=== PATIENT | female | born 1980 | race Caucasian/White ===

== ENCOUNTER 2019-03-27 06:43 | Outpatient (CLI) | payer BC ==
--- NOTE | 2019-03-27 07:36 | ULT ---
EXAM: Abdominal ultrasound complete: HISTORY: Reflux, epigastric pain COMPARISON: None FINDINGS: The liver appears unremarkable. Intraluminal filling defects within the gallbladder evidence for gallbladder wall polyps with a possi ble gallstone in the neck of the gallbladder. The common bile duct is Within normal limits. Visualized pancreas: Unremarkable. Visualized abdominal aorta: Unremarkable. Visualized IVC: Unremarkable. Visualized spleen: Unremarkable. Visualized kidneys: No evidence for hydronephrosis or solid or cystic mass. No mass, abscess, adenopathy, or abnormal fluid collection or other acute process. IMPRESSION: Multiple filling defects within the gallbladder evidence for gallbladder wall polyps with a possible gallstone in the neck of the gallbladder.
== END 2019-03-27 06:44 | disposition home or self-care (01) ==
LOC: BICULT 06:43
PROVIDERS: ATTEND Internal Medicine Gastroenterology
DX: K21.9 Gastro-esophageal reflux disease without esophagitis (principal); R10.13 Epigastric pain; R11.2 Nausea with vomiting, unspecified; R19.7 Diarrhea, unspecified; K82.4 Cholesterolosis of gallbladder
CPT/HCPCS: 76700

== ENCOUNTER 2019-04-01 10:57 | Outpatient (CLI) | payer BC ==
[2019-04-01 12:38] LABS: #Basophils 0.2 thou/uL (0.0-0.2); #Eosinphils 0.1 thou/uL (0.0-0.7); #Lymphocytes 2.6 thou/uL (1.20-3.40); #Monocytes 0.5 thou/uL (0.11-0.59); #Neutrophils 7.2 thou/uL (1.40-6.50); %Basophils 1.5 % (0.0-1.0); %Eosinophils 0.9 % (0.0-10.0); %Lymphocytes 24.7 % (21.0-51.0); %Monocytes 5.1 % (0.0-10.0); %Neutrophils 67.8 % (42.0-75.0); Hemoglobin 13.5 g/dL (12.0-16.0); Mean Corpuscular HGB CONC 32.7 g/dL (32.0-36.0); Mean Corpuscular Hemoglobin 30.5 pg (27.0-31.0); Mean Corpuscular Volume 93.2 fL (78.0-98.0); Mean Platelet Volume 8.7 fL (7.4-10.4); Platelet Count 455 thou/uL (130-400); RBC Distribution Width 12.4 % (11.5-14.5); Red Blood Cell (RBC) Count 4.44 mill/uL (4.20-5.40); White Blood Cell (WBC) Count 10.6 thou/uL (4.8-10.8)
[2019-04-01 13:03] LABS: ALT (SGPT) 27 U/L (8-55); AST (SGOT) 25 U/L (5-34); Albumin 4.5 g/dL (3.5-5.0); Alkaline Phosphatase 62 U/L (40-150); Anion Gap 14 mmol/L (10-20); BUN (Urea Nitrogen) 10 mg/dL (7.0-18.7); Bilirubin, Direct 0.2 mg/dL (0.1-0.3); Bilirubin, Total 0.7 mg/dL (0.2-1.2); Calc. Creatinine Clearance 0 mL/min (70-130); Calcium 9.5 mg/dL (7.8-10.44); Carbon Dioxide 22 mmol/L (22-29); Chloride 108 mmol/L (98-107); Estimated GFR-MDRD 86; Globulin 3.5 g/dL (2.4-3.5); Glucose 91 mg/dL (70-105); Potassium 4.6 mmol/L (3.5-5.1); Sodium 139 mmol/L (136-145)
== END 2019-04-01 10:58 | disposition home or self-care (01) ==
LOC: LABBT 10:57
PROVIDERS: ATTEND Surgery
DX: Z01.818 Encounter for other preprocedural examination (principal); K80.20 Calculus of gallbladder without cholecystitis without obstruction
CPT/HCPCS: 80053; 80076; 85025; 93005; 93010

== ENCOUNTER 2019-04-02 06:01 | Day surgery (SDC) | payer BC ==
[2019-04-01 11:33] VITALS: BMI 34.2
[2019-04-02] MEDS ORDERED: Sodium Chloride 0.9% 100 ML ONE (06:09)
[2019-04-02] MEDS ORDERED: cefOXitin 2 GM VIAL ONE (06:09)
[2019-04-02] MEDS ORDERED: Fentanyl 100 MCG/2 ML VIAL ONE ×2 (06:22→08:55)
[2019-04-02] MEDS ORDERED: Bupivacaine/Epinephrine 0.25% 30 ML VIAL ONE (06:36)
[2019-04-02] MEDS ORDERED: Midazolam HCl 2 mg/2 ml Vial ONE (07:20)
[2019-04-02] MEDS ORDERED: Promethazine HCl 25 MG/ML VIAL ONE (09:55)
[2019-04-02] MEDS ORDERED: Morphine 2 MG/ML SYRINGE ONE (10:03)
[2019-04-02] MEDS ORDERED: HYDROcodone/Acetaminophen 5/325 mg Tablet ONE (10:52)
[2019-04-02] MEDS ORDERED: PROPOFOL 200 MG/20 ML VIAL ONE (13:42)
[2019-04-02] MEDS ORDERED: Ondansetron PF 4 MG/2 ML Vial ONE (13:42)
[2019-04-02] MEDS ORDERED: Dexamethasone 20 MG/5 ML VIAL ONE (13:42)
[2019-04-02] MEDS ORDERED: Succinylcholine Chloride 20 MG/ML 10 ml SYRINGE FS ONE (13:42)
[2019-04-02] MEDS ORDERED: Rocuronium Bromide 10 MG/ML (10ML VIAL) ONE (13:42)
[2019-04-02] MEDS ORDERED: Lidocaine 1% PF 5 ML VIAL ONE (13:42)
[2019-04-02] MEDS ORDERED: Glycopyrrolate 0.2 MG/ML 5 ML SYRINGE ONE (13:42)
--- NOTE | 2019-04-02 14:20 | OP ---
DATE OF PROCEDURE: 04/02/2019 PREOPERATIVE DIAGNOSIS: Symptomatic cholelithiasis. PROCEDURE PERFORMED: Laparoscopic cholecystectomy. INDICATIONS: A 38-year-old female, who has been having episodic right upper quadrant pain. Ultrasound showed polyps and a gallstone. FINDINGS: She had extensive adhesions to the gallbladder, suggesting previous inflammation. The cystic duct was very small caliber without dilatation. DESCRIPTION OF PROCEDURE: After informed consent was obtained, the patient was taken to the operating room, given general endotracheal anesthesia, placed in supine position. Abdomen was prepped and draped in usual fashion. Local anesthesia infiltrated subcutaneously and deep. Subumbilical incision was performed. Subcu divided sharply. The fascia grasped and 2 stay sutures of 0 Vicryl placed in each side of midline. Midline incised. Digital palpation revealed no local adhesions. A blunt 12 mm trocar inserted. Pneumoperitoneum was created to a pressure of 15 mmHg. A 0-degree laparoscope was inserted under direct vision. Three 5 mm ports were placed subcostally. The gallbladder was grasped and advanced superiorly. The peritoneum lysed distally to expose the cystic duct and artery in critical view. The artery and duct were triply ligated with hemoclips and divided. The gallbladder removed from its fossa utilizing electrocautery, removed from the abdomen through the umbilical port. Hemostasis assured. Trocars and retractors removed. The fascia closed with interrupted 2-0 Vicryl suture. The skin closed with interrupted 4-0 Rapide. Dermabond applied. The patient tolerated the procedure well, transferred to Recovery in good condition. Sponge and needle count verified correct x2. Job ID: [id number]
== END 2019-04-02 11:29 | disposition home or self-care (01) ==
LOC: SDC 06:01
PROVIDERS: ATTEND Surgery
PROC: 0FT44ZZ Resection of Gallbladder, Percutaneous Endoscopic Approach (ICD-10-PCS; principal; 2019-04-02)
DX: K80.10 Calculus of gallbladder with chronic cholecystitis without obstruction (principal); I10 Essential (primary) hypertension; D64.9 Anemia, unspecified; M19.90 Unspecified osteoarthritis, unspecified site; E78.00 Pure hypercholesterolemia, unspecified; Z79.899 Other long term (current) drug therapy
CPT/HCPCS: 88304; J0694; J1100; J2001; J2250; J2270; J2405; J2550; J2704; J3010; J3490

== ENCOUNTER → 2019-05-20 | Day surgery (SDC) | payer BC | LOC: ENDO/OP 07:49 | PROVIDERS: ATTEND Internal Medicine Gastroenterology | DX: K21.9 Gastro-esophageal reflux disease without esophagitis (principal) | CPT/HCPCS: 91010; 91034 ==

== ENCOUNTER 2019-06-04 15:48 | Outpatient (CLI) | payer BC ==
[2019-06-04 17:26] LABS: #Basophils 0.1 thou/uL (0.0-0.2); #Eosinphils 0.2 thou/uL (0.0-0.7); #Lymphocytes 3.4 thou/uL (1.20-3.40); #Monocytes 0.7 thou/uL (0.11-0.59); #Neutrophils 6.2 thou/uL (1.40-6.50); %Basophils 1.1 % (0.0-1.0); %Eosinophils 1.9 % (0.0-10.0); %Lymphocytes 31.7 % (21.0-51.0); %Monocytes 6.4 % (0.0-10.0); %Neutrophils 58.9 % (42.0-75.0); Hemoglobin 13.5 g/dL (12.0-16.0); Mean Corpuscular HGB CONC 33.4 g/dL (32.0-36.0); Mean Corpuscular Hemoglobin 30.3 pg (27.0-31.0); Mean Corpuscular Volume 90.6 fL (78.0-98.0); Mean Platelet Volume 9.1 fL (7.4-10.4); Platelet Count 401 thou/uL (130-400); RBC Distribution Width 12.2 % (11.5-14.5); Red Blood Cell (RBC) Count 4.47 mill/uL (4.20-5.40); White Blood Cell (WBC) Count 10.5 thou/uL (4.8-10.8)
== END 2019-06-04 15:49 | disposition home or self-care (01) ==
LOC: LABBT 15:48
PROVIDERS: ATTEND Surgery
DX: Z01.818 Encounter for other preprocedural examination (principal); K44.9 Diaphragmatic hernia without obstruction or gangrene; K21.9 Gastro-esophageal reflux disease without esophagitis
CPT/HCPCS: 85025; 93005; 93010

== ENCOUNTER 2019-10-10 08:40 | Outpatient (CLI) | payer BC ==
--- NOTE | 2019-10-15 14:26 | MMO ---
Bilateral MAMMO Bilat Screen [facility]. CLINICAL HISTORY: Patient is 38 years old and is seen for screening. The patient has the following family history of breast cancer: paternal aunt, at age 36, malignant (generic), SECOND OCCURANCE 2018, LEUKEMIA AND MELANOMA and paternal grandmother, at age 50, malignant (generic), PANCREATIC. The patient has no personal history of cancer. VIEWS: The views performed were: bilateral craniocaudal with tomosynthesis; bilateral mediolateral oblique with tomosynthesis; and left craniocaudal. FILMS COMPARED: The present examination has been compared to a prior imaging study performed at [facility] on 11/11/2014. This study has been interpreted with the assistance of computer-aided detection. MAMMOGRAM FINDINGS: There are scattered fibroglandular densities. There are no suspicious masses, suspicious calcifications, or new areas of architectural distortion. IMPRESSION: THERE IS NO MAMMOGRAPHIC EVIDENCE OF MALIGNANCY. A ROUTINE FOLLOW-UP MAMMOGRAM IN 1 YEAR IS RECOMMENDED. THE RESULTS OF THIS EXAM WERE SENT TO THE PATIENT. ACR BI-RADS Category 1 - Negative MAMMOGRAPHY NOTE: 1. A negative mammogram report should not delay a biopsy if a dominant of clinically suspicious mass is present. 2. Approximately 10% to 15% of breast cancers are not detected by mammography. 3. Adenosis and dense breasts may obscure an underlying neoplasm. Reported by: MARYBETH DAO MD Electonically Signed: [id number]
== END 2019-10-10 08:41 | disposition home or self-care (01) ==
LOC: BICMAMMO 08:40
PROVIDERS: ATTEND Obstetrics & Gynecology
DX: Z12.31 Encounter for screening mammogram for malignant neoplasm of breast (principal); Z80.3 Family history of malignant neoplasm of breast
CPT/HCPCS: 77063; 77067

== ENCOUNTER 2020-08-27 06:34 | Outpatient (CLI) | payer BC, OTHER ==
[2020-08-27 14:03] LABS: #Basophils 0.1 thou/uL (0.0-0.2); #Eosinphils 0.1 thou/uL (0.0-0.7); #Lymphocytes 2.8 thou/uL (1.20-3.40); #Monocytes 0.5 thou/uL (0.11-0.59); #Neutrophils 3.8 thou/uL (1.40-6.50); %Basophils 1.4 % (0.0-1.0); %Eosinophils 1.1 % (0.0-10.0); %Lymphocytes 38.4 % (21.0-51.0); %Monocytes 7.1 % (0.0-10.0); %Neutrophils 52.1 % (42.0-75.0); Hemoglobin 13.7 g/dL (12.0-16.0); Mean Corpuscular HGB CONC 32.3 g/dL (32.0-36.0); Mean Corpuscular Hemoglobin 30.7 pg (27.0-31.0); Mean Platelet Volume 8.9 fL (7.4-10.4); Platelet Count 454 thou/uL (130-400); RBC Distribution Width 11.7 % (11.5-14.5); Red Blood Cell (RBC) Count 4.46 mill/uL (4.20-5.40); White Blood Cell (WBC) Count 7.2 thou/uL (4.8-10.8)
[2020-08-27 14:42] LABS: ALT (SGPT) 15 U/L (8-55); AST (SGOT) 17 U/L (5-34); Albumin 4.2 g/dL (3.5-5.0); Alkaline Phosphatase 65 U/L (40-110); Anion Gap 10 mmol/L (10-20); BUN (Urea Nitrogen) 6 mg/dL (7.0-18.7); Bilirubin, Total 0.4 mg/dL (0.2-1.2); Calc. Creatinine Clearance 0 mL/min (70-130); Calcium 8.5 mg/dL (7.8-10.44); Carbon Dioxide 25 mmol/L (22-29); Chloride 108 mmol/L (98-107); Estimated GFR-MDRD 88; Globulin 3.2 g/dL (2.4-3.5); Glucose 97 mg/dL (70-105); Potassium 3.9 mmol/L (3.5-5.1); Protein, Total 7.4 g/dL (6.0-8.3); Sodium 139 mmol/L (136-145)
[2020-08-28 12:01] LABS: SARS-CoV-2 MS2 Positive; SARS-CoV-2 N Gene Negative; SARS-CoV-2 S Gene Negative; SARS-CoV-2 by NAA Not Detected (NotDetected); SARS-CoV-2 orf1ab Negative
--- NOTE | 2020-08-29 12:11 | EKG ---
Test Reason : Blood Pressure : / mmHG Vent. Rate : 083 BPM Atrial Rate : 083 BPM P-R Int : 112 ms QRS Dur : 086 ms QT Int : 374 ms P-R-T Axes : 034 065 019 degrees QTc Int : 439 ms Normal sinus rhythm Normal ECG No previous ECGs available Confirmed by GRACIE CARDOZO (2) on 08/29/2020 12:11:06 PM Referred By: GABY Confirmed By:GRAICE CARDOZO
== END 2020-08-27 06:35 | disposition home or self-care (01) ==
LOC: LABBT 06:34
PROVIDERS: ATTEND Surgery
DX: Z01.818 Encounter for other preprocedural examination (principal); K44.9 Diaphragmatic hernia without obstruction or gangrene; Z20.828 Contact with and (suspected) exposure to other viral communicable diseases
CPT/HCPCS: 80053; 85025; 87635; 93005; 93010; U0003

== ENCOUNTER 2020-09-01 05:56 | Day surgery (SDC) | payer BC ==
[2020-08-31 09:25] VITALS: BMI 31.6
[2020-09-01] MEDS ORDERED: Bupivacaine/Epinephrine 0.25% 30 ML VIAL ONE (06:48)
[2020-09-01] MEDS ORDERED: Midazolam HCl 2 mg/2 ml Vial ONE (07:00)
[2020-09-01] MEDS ORDERED: Fentanyl 250 MCG/5 ML VIAL ONE (07:00)
[2020-09-01] MEDS ORDERED: Scopolamine 1.5 mg/72 hour Patch ONE (07:25)
[2020-09-01] MEDS ORDERED: hydrALAZINE 20 MG/ML VIAL SLOW IVP PRN (09:02)
[2020-09-01] MEDS ORDERED: Promethazine HCl 25 MG/ML VIAL IM PRN ×3 (09:02→09:17)
[2020-09-01] MEDS ORDERED: diphenhydrAMINE 50 MG/ML VIAL IVP PRN ×2 (09:02→09:09)
[2020-09-01] MEDS ORDERED: Hydrocodone-Acetamin 15 ML UDCUP PO PRN (09:02)
[2020-09-01] MEDS ORDERED: Ondansetron PF 4 MG/2 ML Vial IVP PRN ×2 (09:02→09:09)
[2020-09-01] MEDS ORDERED: Dextrose 5% in Water 1,000 ML IV PRN (09:02)
[2020-09-01] MEDS ORDERED: Dextrose 50% Abboject 50 ML SYRINGE SLOW IVP PRN (09:02)
[2020-09-01] MEDS ORDERED: diphenhydrAMINE 25 MG CAP PO PRN (09:09)
[2020-09-01] MEDS ORDERED: Zolpidem Tartrate 5 MG TAB PO PRN (09:09)
[2020-09-01] MEDS ORDERED: fentaNYL Citrate/PF 2,000 MCG in Sodium Chloride 0.9% 60 ML IV PRN (09:09)
[2020-09-01] MEDS ORDERED: Naloxone HCl 0.4 mg/ml Vial IV PRN (09:09)
[2020-09-01] MEDS ORDERED: diphenhydrAMINE 50 MG/ML VIAL IM PRN (09:09)
[2020-09-01] MEDS ORDERED: Communication Order-Pharmacy FS PRN (09:15)
[2020-09-01] MEDS ORDERED: Ondansetron HCl/PF 4 MG/2 ML Vial IVP PRN (09:17)
[2020-09-01] MEDS ORDERED: Ketorolac Tromethamine 30 MG/ML VIAL IVP PRN (09:17)
[2020-09-01] MEDS ORDERED: Promethazine HCl 25 MG/ML VIAL SLOW IVP PRN (09:17)
[2020-09-01] MEDS ORDERED: Fentanyl 100 MCG/2 ML VIAL ONE (09:17)
[2020-09-01] MEDS ORDERED: Ondansetron PF 4 MG/2 ML Vial ONE ×2 (09:31→11:14)
[2020-09-01] MEDS ORDERED: D5 1/2 NS w/20 mEq KCL 1,000 ML ONE (09:31)
[2020-09-01] MEDS ORDERED: Promethazine HCl 25 MG/ML VIAL ONE (09:31)
--- NOTE | 2020-09-01 09:57 | OP ---
DATE OF PROCEDURE: 09/01/2020 PREOPERATIVE DIAGNOSIS: Recurrent paraesophageal hernia. PROCEDURES PERFORMED: Laparoscopic paraesophageal hiatal hernia repair with Daniel fundoplication. Esophagogastroscopy. INDICATIONS: The patient is a 39-year-old female who a year ago had had a Daniel fundoplication done, had great results until about 2 months ago when she had recurrent symptoms of reflux. She underwent EGD that showed the wrap was completely undone, and there was a small paraesophageal hiatal hernia. FINDINGS: Small left-sided paraesophageal hiatal hernia. The wrap was completed undone. DESCRIPTION OF PROCEDURE: After informed consent was obtained, the patient was taken to the operating room, given general endotracheal anesthesia, placed in the supine position. Abdomen was prepped and draped in usual fashion. Local anesthesia was infiltrated subcutaneously, and a 5-mm incision was performed approximately 8 inches below the xiphoid slightly to the left. Veress needle inserted. Drop test performed. Pneumoperitoneum was created to a volume of 2 L of carbon dioxide. Utilizing a bladeless 5-mm trocar and 0-degree laparoscope, direct visual entry into the abdominal cavity was performed. Pneumoperitoneum was created to a pressure of 15 mmHg, and the patient placed in steep reverse Trendelenburg position. Beronica liver retractor inserted. Left lobe of the liver retracted superiorly. A second 5-mm port was placed just to the left of the falciform, 8-mm port was placed to upper left subcostal and then another 5-mm port placed further inferior lateral on the left. A laparoscopic lysis of adhesions was performed utilizing Metzenbaum scissors and the LigaSure, and this allowed the liver to be completely from the previous dissection, so no evidence of the wrap. The esophagus was found. On the right, it was very well sealed along the right crura. On the left, there was a small amount of fundus that had herniated into the chest, luckily this came down pretty easily, it was able to open that up. Also, I had to take down the greater curvature again with adhesions to fundoplication. Then, a posterior crural dissection was performed. A window was created, and the esophagus was retracted anteriorly with a [place] drain. This allowed further delineation. A 40-Urdu bougie was inserted and directed into the body of the stomach, and the left hiatal opening was closed between the esophagus and the left crura with interrupted 2-0 silk sutures, tied intracorporeally to close this potential space. Then, the fundus was grasped and brought to the right side of the esophagus. A Daniel fundoplication was performed utilizing 2-0 silk sutures, tied intracorporeally between the left fundus, the esophagus, and the right fundus. The distal stitch was left a little bit loose retaining suture in case one or more have been broke. At the completion of this, hemostasis was assured. The bougie removed. An intraoperative endoscopy was performed. The video endoscope was inserted under direct vision, advanced into the stomach. The wrap looked good. There was no torsion or paraesophageal component. There was no air leak. No bleeding within the gastric space. The pylorus identified. The stomach decompressed. Scope removed. At this point, the trocars and retractors removed, and the skin closed with interrupted 4-0 Morrison. Dermabond applied. The patient tolerated the procedure well and transferred to Recovery in good condition. Sponge and needle count verified correct x2. Job ID: [id number]
[2020-09-01] MEDS ORDERED: EPHEDRINE 25 MG/5 ML SYRINGE ONE (11:14)
[2020-09-01] MEDS ORDERED: PHENYLEPHRINE-NS 100 MCG/ML 10 ML SYRINGE ONE (11:14)
[2020-09-01] MEDS ORDERED: PROPOFOL 200 MG/20 ML VIAL ONE (11:14)
[2020-09-01] MEDS ORDERED: Lidocaine 1% PF 5 ML VIAL ONE (11:14)
[2020-09-01] MEDS ORDERED: Succinylcholine 200 MG/10 ml SYRINGE FS ONE (11:14)
[2020-09-01] MEDS ORDERED: Rocuronium Bromide 10 MG/ML (10ML VIAL) ONE (11:14)
[2020-09-01] MEDS ORDERED: Dexamethasone 20 MG/5 ML VIAL ONE (11:14)
[2020-09-01] MEDS ORDERED: Glycopyrrolate 0.2 MG/ML 5 ML SYRINGE ONE (11:14)
[2020-09-01] MEDS: Ketorolac Tromethamine 30 MG/ML VIAL IVP SCH ×3 (12:26→23:41)
[2020-09-01] MEDS: CEFAZOLIN 2 GM in Premix Bag 1 BAG IVPB SCH ×2 (16:36→23:41)
[2020-09-01] MEDS: D5 1/2 NS w/20 mEq KCL 1,000 ML IV SCH ×2 (18:31→23:42)
[2020-09-02 05:26] LABS: #Basophils 0.1 thou/uL (0.0-0.2); #Lymphocytes 3.2 thou/uL (1.20-3.40); #Neutrophils 10.2 thou/uL (1.40-6.50); %Basophils 0.4 % (0.0-1.0); %Eosinophils 0.1 % (0.0-10.0); %Lymphocytes 22.2 % (21.0-51.0); %Monocytes 6.7 % (0.0-10.0); %Neutrophils 70.6 % (42.0-75.0); Hemoglobin 11.8 g/dL (12.0-16.0); Mean Corpuscular HGB CONC 33.3 g/dL (32.0-36.0); Mean Corpuscular Hemoglobin 31.3 pg (27.0-31.0); Mean Corpuscular Volume 93.9 fL (78.0-98.0); Platelet Count 386 thou/uL (130-400); RBC Distribution Width 11.9 % (11.5-14.5); Red Blood Cell (RBC) Count 3.77 mill/uL (4.20-5.40); White Blood Cell (WBC) Count 14.4 thou/uL (4.8-10.8)
[2020-09-02 05:53] LABS: Anion Gap 10 mmol/L (10-20); BUN (Urea Nitrogen) 6 mg/dL (7.0-18.7); Calc. Creatinine Clearance 127 mL/min (70-130); Calcium 8.2 mg/dL (7.8-10.44); Carbon Dioxide 22 mmol/L (22-29); Chloride 108 mmol/L (98-107); Glucose 119 mg/dL (70-105); Sodium 136 mmol/L (136-145)
[2020-09-02] MEDS: Ketorolac Tromethamine 30 MG/ML VIAL IVP SCH ×2 (06:14→11:18)
--- NOTE | 2020-09-02 08:02 | RAD ---
XR UGI Single Contrast No Air HISTORY: Gastroesophageal reflux. Revision of Daniel's fundoplication. Paraesophageal hernia repair. Procedure: Single sip swallow study was performed with administration of 15 mL contrast under fluoros copy. FINDINGS: Contrast traverses the gastroesophageal junction. No leak or evidence of obstruction.
[2020-09-02] MEDS ORDERED: Enoxaparin Sodium 40 MG/0.4 ML SYRINGE SC SCH (09:00)
[2020-09-02] MEDS ORDERED: Pantoprazole 40 MG VIAL IVP SCH (09:00)
[2020-09-02] MEDS: D5 1/2 NS w/20 mEq KCL 1,000 ML IV SCH (09:14)
[2020-09-02 11:23] VITALS: BP 111/77; TEMP 98.4
[2020-09-02] MEDS ORDERED: Hydrocodone-Acetamin 15 ML UDCUP PO PRN (12:39)
[2020-09-02] MEDS ORDERED: GASTROGRAFIN 30 ML BOT ONE (14:57)
--- NOTE | 2020-09-03 02:06 | DIS ---
DATE OF ADMISSION: 09/01/2020 DATE OF DISCHARGE: 09/02/2020 DISCHARGE DIAGNOSIS: Recurrent paraesophageal hiatal hernia with reflux. PROCEDURES DURING ADMISSION: Laparoscopic hiatal hernia repair with Daniel fundoplication and intraoperative esophagogastroscopy, postoperative Gastrografin swallow. HOSPITAL COURSE: Patient was admitted, taken to the operating room, where she underwent the repair. Postoperatively, she has done well. Her x-ray was fine. She is tolerating liquids. She is discharged home on hydrocodone and Zofran. She will follow up with me in 2 weeks. Job ID: [id number]
== END 2020-09-02 13:55 | disposition home or self-care (01) ==
LOC: SDC 05:56 → SURG A 09:02 → UNDOADMIN 09:02 → SURG A 09:02 → UNDODISIN 09-02 13:55 → SDC 09-02 13:55
PROVIDERS: ATTEND Surgery
PROC: 0DV44ZZ Restriction of Esophagogastric Junction, Percutaneous Endoscopic Approach (ICD-10-PCS; principal; 2020-09-01)
PROC: 0BQT4ZZ Repair Diaphragm, Percutaneous Endoscopic Approach (ICD-10-PCS; 2020-09-01)
DX: K44.9 Diaphragmatic hernia without obstruction or gangrene (principal); K21.9 Gastro-esophageal reflux disease without esophagitis; M19.90 Unspecified osteoarthritis, unspecified site; G43.909 Migraine, unspecified, not intractable, without status migrainosus; I10 Essential (primary) hypertension; Z79.82 Long term (current) use of aspirin; Z79.899 Other long term (current) drug therapy; Z90.81 Acquired absence of spleen; Z98.890 Other specified postprocedural states
CPT/HCPCS: 36415; 74240; 80048; 85025; C9113; J0690; J1100; J1650; J1885; J2250; J2405; J2550; J2704; J3010; J3480; J3490; Q9963

== ENCOUNTER 2020-11-23 08:20 | Outpatient (CLI) | payer BC ==
--- NOTE | 2020-11-23 08:50 | MMO ---
Bilateral MAMMO Bilat Screen [facility]. CLINICAL HISTORY: Patient is 40 years old and is seen for screening. The patient has the following family history of breast cancer: paternal aunt, at age 36, malignant (generic), SECOND OCCURANCE 2018, LEUKEMIA AND MELANOMA and paternal grandmother, at age 50, malignant (generic), PANCREATIC. The patient has no personal history of cancer. VIEWS: The views performed were: bilateral craniocaudal with tomosynthesis and bilateral mediolateral oblique with tomosynthesis. FILMS COMPARED: The present examination has been compared to prior imaging studies performed at [facility] on 10/10/2019, and at [facility] on 11/11/2014. This study has been interpreted with the assistance of computer-aided detection. MAMMOGRAM FINDINGS: There are scattered fibroglandular densities. There is a low density, oval mass measuring 17 millimeters with circumscribed margins seen in the middle region of the left breast at 1 o'clock. In the right breast, there are no suspicious masses, calcifications or areas of architectural distortion. IMPRESSION: MASS IN THE LEFT BREAST REQUIRES ADDITIONAL EVALUATION. AN ULTRASOUND EXAM IS RECOMMENDED. THE RESULTS OF THIS EXAM WERE SENT TO THE PATIENT. ACR BI-RADS Category 0 - Incomplete: Need additional imaging evaluation. [facility] will notify the patient of the need for additional imaging services. MAMMOGRAPHY NOTE: 1. A negative mammogram report should not delay a biopsy if a dominant of clinically suspicious mass is present. 2. Approximately 10% to 15% of breast cancers are not detected by mammography. 3. Adenosis and dense breasts may obscure an underlying neoplasm. Reported by: JINNY TRONCOSO MD Electonically Signed: [id number]
== END 2020-11-23 08:21 | disposition home or self-care (01) ==
LOC: BICMAMMO 08:20
PROVIDERS: ATTEND Obstetrics & Gynecology
DX: Z12.31 Encounter for screening mammogram for malignant neoplasm of breast (principal); Z80.3 Family history of malignant neoplasm of breast; N63.20 Unspecified lump in the left breast, unspecified quadrant
CPT/HCPCS: 77063; 77067

== ENCOUNTER 2020-11-25 07:40 | Outpatient (CLI) | payer BC ==
--- NOTE | 2020-11-25 08:12 | ULT ---
EXAM: US Breast Limited Lt PROVIDED CLINICAL HISTORY: Abnormal screening mammogram COMPARISON: Screening mammogram 11/23/2020 FINDINGS: Limited sonographic interrogation was performed of the left breast at the 1:00 position, in the regio n of mammographic concern. There is a 1.7 cm oval, smoothly marginated anechoic structure with enhanced through transmission compatible with a simple cyst. No concerning sonographic findings are e vident. IMPRESSION: Simple cyst corresponds to the mammogram finding. Return to screening. BI-RADS 2 -- benign findings
== END 2020-11-25 07:41 | disposition home or self-care (01) ==
LOC: BICULT 07:40
PROVIDERS: ATTEND Obstetrics & Gynecology
DX: N63.20 Unspecified lump in the left breast, unspecified quadrant (principal)

== ENCOUNTER 2021-07-13 14:49 | Outpatient (CLI) | payer BC ==
[2021-07-13 15:43] LABS: #Basophils 0.1 10x3/uL (0.0-0.2); #Eosinphils 0.1 10x3/uL (0.0-0.5); #Monocytes 0.8 10x3/uL (0.0-1.1); #Neutrophils 4.7 10x3/uL (1.5-8.4); %Basophils 1.7 % (0.0-2.0); %Eosinophils 0.7 % (0.0-6.0); %Lymphocytes 32.5 % (18.0-47.0); %Monocytes 9.7 % (0.0-10.0); %Neutrophils 55.2 % (40.0-75.0); Hemoglobin 12.3 g/dL (12.0-15.5); Mean Corpuscular HGB CONC 32.5 g/dL (32.0-36.0); Mean Corpuscular Hemoglobin 30.5 pg (27.0-33.0); Mean Platelet Volume 10.6 fl (7.4-10.4); Platelet Count 472 10x3/uL (150-450); RBC Distribution Width 13.9 % (11.5-14.5); Red Blood Cell (RBC) Count 4.03 10x6/uL (3.90-5.03); White Blood Cell (WBC) Count 8.5 10x3/uL (3.5-10.5)
[2021-07-13 16:02] LABS: ALT (SGPT) 19 U/L (8-55); AST (SGOT) 18 U/L (5-34); Albumin 4.3 g/dL (3.5-5.0); Alkaline Phosphatase 51 U/L (40-110); Anion Gap 15 mmol/L (10-20); BUN (Urea Nitrogen) 6 mg/dL (7.0-18.7); Bilirubin, Total 0.6 mg/dL (0.2-1.2); Calc. Creatinine Clearance 0 mL/min (70-130); Calcium 9.9 mg/dL (7.8-10.44); Carbon Dioxide 21 mmol/L (22-29); Chloride 109 mmol/L (98-107); Globulin 2.9 g/dL (2.4-3.5); Glucose 105 mg/dL (70-105); Potassium 3.6 mmol/L (3.5-5.1); Protein, Total 7.2 g/dL (6.0-8.3); Sodium 141 mmol/L (136-145)
[2021-07-14 12:08] LABS: SARS-CoV-2 PCR by NAA Not Detected (NotDetected)
== END 2021-07-13 14:50 | disposition home or self-care (01) ==
LOC: LABBT 14:49
PROVIDERS: ATTEND Surgery
DX: Z01.818 Encounter for other preprocedural examination (principal); Z20.822 Contact with and (suspected) exposure to COVID-19
CPT/HCPCS: 80053; 85025; 93005; 93010; U0003; U0005

== ENCOUNTER 2021-07-18 06:00 | Day surgery (SDC) | payer BC ==
[2021-07-15 13:50] VITALS: BMI 28.9
[2021-07-18] MEDS ORDERED: Fentanyl 100 MCG/2 ML VIAL ONE ×3 (06:35→11:05)
[2021-07-18] MEDS ORDERED: Bupivacaine 0.25% HCL 30 ML VIAL ONE (06:45)
[2021-07-18] MEDS ORDERED: Lidocaine 1% w/Epinephrine 1:100K 30 ML VIAL ONE (06:45)
[2021-07-18] MEDS ORDERED: Scopolamine 1.5 mg/72 hour Patch ONE (07:09)
[2021-07-18] MEDS ORDERED: Midazolam HCl 2 mg/2 ml Vial ONE (07:09)
[2021-07-18] MEDS ORDERED: Acetaminophen 500 MG TAB ONE (07:09)
[2021-07-18] MEDS ORDERED: Ketamine 50 MG/ML (10ML VIAL) ONE (07:11)
[2021-07-18] MEDS ORDERED: Dexmedetomidine 200 MCG/2 ML VIAL ONE (07:11)
[2021-07-18] MEDS ORDERED: Propofol 1,000 MG/100 ML VIAL IV ONE (07:11)
[2021-07-18] MEDS ORDERED: Phenylephrine 10 MG/ML VIAL ONE (07:12)
[2021-07-18] MEDS ORDERED: Rocuronium Bromide 10 MG/ML (10ML VIAL) ONE (07:28)
[2021-07-18] MEDS ORDERED: Lidocaine 1% PF 5 ML VIAL ONE (07:28)
[2021-07-18] MEDS ORDERED: Glycopyrrolate 0.2 MG/ML 5 ML SYRINGE ONE (07:28)
[2021-07-18] MEDS ORDERED: Ondansetron PF 4 MG/2 ML Vial ONE (07:28)
[2021-07-18] MEDS ORDERED: Succinylcholine 200 MG/10 ml SYRINGE FS ONE (07:28)
[2021-07-18] MEDS ORDERED: PROPOFOL 200 MG/20 ML VIAL ONE (07:28)
[2021-07-18] MEDS ORDERED: Dexamethasone 20 MG/5 ML VIAL ONE (07:28)
[2021-07-18] MEDS ORDERED: Ketorolac Tromethamine 30 MG/ML VIAL ONE (07:28)
[2021-07-18] MEDS ORDERED: PHENYLEPHRINE-NS 100 MCG/ML 10 ML SYRINGE ONE (07:28)
[2021-07-18] MEDS ORDERED: Magnesium 5 GM/10 ML Abboject SYRINGE ONE (07:39)
[2021-07-18] MEDS ORDERED: Promethazine HCl 25 MG/ML VIAL ONE ×2 (11:13→12:07)
[2021-07-18] MEDS ORDERED: Morphine 2 MG/ML VIAL ONE ×2 (12:07→13:08)
[2021-07-18] MEDS ORDERED: Hydrocodone-Acetamin 15 ML UDCUP ONE (13:33)
== END 2021-07-18 15:50 | disposition home or self-care (01) ==
LOC: SDC 06:00
PROVIDERS: ATTEND Surgery
PROC: 0BUT4JZ Supplement Diaphragm with Synthetic Substitute, Percutaneous Endoscopic Approach (ICD-10-PCS; principal; 2021-07-18)
DX: K44.9 Diaphragmatic hernia without obstruction or gangrene (principal); K66.0 Peritoneal adhesions (postprocedural) (postinfection); M19.90 Unspecified osteoarthritis, unspecified site; I10 Essential (primary) hypertension; G43.909 Migraine, unspecified, not intractable, without status migrainosus; Z79.82 Long term (current) use of aspirin; Z79.899 Other long term (current) drug therapy
CPT/HCPCS: C1768; J0690; J1100; J1885; J2250; J2270; J2370; J2405; J2550; J2704; J3010; J3475; S0020

== ENCOUNTER 2021-07-25 10:33 | Inpatient (IN) | payer BC ==
[2021-07-25] MEDS ORDERED: Iopamidol-370 76% 500 ML 1 ML ONE (11:12)
[2021-07-25 12:24] LABS: #Basophils 0.1 thou/uL (0.0-0.2); #Eosinphils 0.2 thou/uL (0.0-0.7); #Lymphocytes 2.3 thou/uL (1.20-3.40); #Monocytes 0.9 thou/uL (0.11-0.59); #Neutrophils 10.8 thou/uL (1.40-6.50); %Basophils 0.8 % (0.0-1.0); %Eosinophils 1.2 % (0.0-10.0); %Lymphocytes 16.1 % (21.0-51.0); %Monocytes 6.3 % (0.0-10.0); %Neutrophils 75.6 % (42.0-75.0); Hemoglobin 14.6 g/dL (12.0-16.0); Mean Corpuscular HGB CONC 32.2 g/dL (32.0-36.0); Mean Corpuscular Hemoglobin 30.3 pg (27.0-31.0); Mean Corpuscular Volume 93.9 fL (78.0-98.0); Mean Platelet Volume 8.8 fL (7.4-10.4); Platelet Count 439 thou/uL (130-400); RBC Distribution Width 11.8 % (11.5-14.5); Red Blood Cell (RBC) Count 4.82 mill/uL (4.20-5.40); White Blood Cell (WBC) Count 14.3 thou/uL (4.8-10.8)
[2021-07-25 12:46] LABS: Albumin 4.4 g/dL (3.5-5.0)
[2021-07-25 12:48] LABS: Calcium 9.9 mg/dL (7.8-10.44); Chloride 103 mmol/L (98-107); Potassium 3.8 mmol/L (3.5-5.1); Sodium 137 mmol/L (136-145)
[2021-07-25 12:49] LABS: Globulin 4.1 g/dL (2.4-3.5); Glucose 102 mg/dL (70-105); Protein, Total 8.5 g/dL (6.0-8.3)
[2021-07-25 12:50] LABS: Carbon Dioxide 25 mmol/L (22-29)
[2021-07-25 12:51] LABS: Anion Gap 13 mmol/L (10-20); Bilirubin, Total 1.1 mg/dL (0.2-1.2)
[2021-07-25 12:52] LABS: Alkaline Phosphatase 83 U/L (40-110); Calc. Creatinine Clearance 0 mL/min (70-130)
[2021-07-25 12:53] LABS: BUN (Urea Nitrogen) 6 mg/dL (7.0-18.7)
[2021-07-25 12:54] LABS: AST (SGOT) 26 U/L (5-34)
[2021-07-25 12:55] LABS: ALT (SGPT) 40 U/L (8-55)
[2021-07-25 13:35] LABS: Lipase 12 U/L (8-78)
[2021-07-25] MEDS ORDERED: Morphine 4 MG/ML VIAL ONE (13:37)
[2021-07-25] MEDS ORDERED: Ondansetron PF 4 MG/2 ML Vial ONE (13:37)
[2021-07-25] MEDS ORDERED: Dextrose 5% in Water 1,000 ML IV PRN (14:36)
[2021-07-25] MEDS ORDERED: Morphine 2 MG/ML VIAL SLOW IVP PRN (14:36)
[2021-07-25] MEDS ORDERED: Hydrocodone-Acetamin 15 ML UDCUP PO PRN (14:36)
[2021-07-25] MEDS ORDERED: Dextrose 50% Abboject 50 ML SYRINGE SLOW IVP PRN (14:36)
[2021-07-25] MEDS ORDERED: Promethazine HCl 25 MG/ML VIAL IM PRN (14:36)
[2021-07-25] MEDS ORDERED: hydrALAZINE 20 MG/ML VIAL SLOW IVP PRN (14:36)
[2021-07-25] MEDS ORDERED: diphenhydrAMINE 50 MG/ML VIAL IVP PRN (14:36)
[2021-07-25] MEDS ORDERED: Ondansetron PF 4 MG/2 ML Vial IVP PRN (14:36)
[2021-07-25] MEDS ORDERED: Piperacillin/Tazobactam 3.375 GM in Sodium Chloride 0.9% 100 ML IVPB SCH ×2 (15:00→18:00)
[2021-07-25] MEDS ORDERED: Piperacillin/Tazobactam 3.375 GM VIAL ONE (16:01)
[2021-07-25] MEDS ORDERED: Ketorolac Tromethamine 30 MG/ML VIAL IVP SCH (18:00)
[2021-07-25] MEDS: Piperacillin/Tazobactam 3.375 GM in Sodium Chloride 0.9% 100 ML IVPB SCH (20:04)
[2021-07-25] MEDS: D5 1/2 NS w/20 mEq KCL 1,000 ML IV SCH (20:30)
[2021-07-25] MEDS: Morphine 4 MG/ML VIAL SLOW IVP PRN (22:36)
[2021-07-26] MEDS: Ketorolac Tromethamine 30 MG/ML VIAL IVP SCH ×4 (03:28→21:18)
[2021-07-26] MEDS: D5 1/2 NS w/20 mEq KCL 1,000 ML IV SCH ×4 (03:38→11:28)
[2021-07-26] MEDS: Piperacillin/Tazobactam 3.375 GM in Sodium Chloride 0.9% 100 ML IVPB SCH ×3 (03:38→21:18)
[2021-07-26] MEDS: Morphine 4 MG/ML VIAL SLOW IVP PRN ×2 (03:57→08:54)
[2021-07-26 07:47] LABS: #Basophils 0.1 thou/uL (0.0-0.2); #Eosinphils 0.4 thou/uL (0.0-0.7); #Lymphocytes 2.4 thou/uL (1.20-3.40); #Neutrophils 6.7 thou/uL (1.40-6.50); %Basophils 1.2 % (0.0-1.0); %Eosinophils 3.6 % (0.0-10.0); %Lymphocytes 22.4 % (21.0-51.0); %Monocytes 9.8 % (0.0-10.0); %Neutrophils 62.9 % (42.0-75.0); Hemoglobin 11.3 g/dL (12.0-16.0); Mean Corpuscular HGB CONC 31.8 g/dL (32.0-36.0); Mean Corpuscular Hemoglobin 30.3 pg (27.0-31.0); Mean Corpuscular Volume 95.2 fL (78.0-98.0); Mean Platelet Volume 8.7 fL (7.4-10.4); Platelet Count 388 thou/uL (130-400); RBC Distribution Width 11.7 % (11.5-14.5); Red Blood Cell (RBC) Count 3.73 mill/uL (4.20-5.40); White Blood Cell (WBC) Count 10.6 thou/uL (4.8-10.8)
[2021-07-26 07:52] LABS: Anion Gap 11 mmol/L (10-20); BUN (Urea Nitrogen) 6 mg/dL (7.0-18.7); Calc. Creatinine Clearance 129 mL/min (70-130); Calcium 8.2 mg/dL (7.8-10.44); Carbon Dioxide 23 mmol/L (22-29); Chloride 108 mmol/L (98-107); Glucose 110 mg/dL (70-105); Potassium 4.5 mmol/L (3.5-5.1); Sodium 137 mmol/L (136-145)
[2021-07-26] MEDS: Enoxaparin Sodium 40 MG/0.4 ML SYRINGE SC SCH (08:14)
[2021-07-26] MEDS: Pantoprazole 40 MG VIAL IVP SCH (08:14)
[2021-07-26 11:15] VITALS: BMI 28.3
[2021-07-26 13:35] LABS: SARS-CoV-2 PCR by NAA Not Detected (NotDetected)
[2021-07-26] MEDS: Gabapentin 300 MG CAP PO SCH ×2 (17:27→21:19)
[2021-07-27] MEDS: Ketorolac Tromethamine 30 MG/ML VIAL IVP SCH ×2 (00:54→08:12)
[2021-07-27] MEDS ORDERED: Gabapentin 300 MG CAP PO PRN ×2 (01:21→01:23)
[2021-07-27] MEDS: D5 1/2 NS w/20 mEq KCL 1,000 ML IV SCH (04:32)
[2021-07-27] MEDS: Piperacillin/Tazobactam 3.375 GM in Sodium Chloride 0.9% 100 ML IVPB SCH (04:33)
[2021-07-27] MEDS: Gabapentin 300 MG CAP PO SCH (08:15)
[2021-07-27] MEDS: Pantoprazole 40 MG VIAL IVP SCH (08:21)
[2021-07-27] MEDS: Enoxaparin Sodium 40 MG/0.4 ML SYRINGE SC SCH (08:22)
[2021-07-27 12:51] VITALS: BP 123/83; TEMP 98.2
== END 2021-07-27 12:48 | disposition home or self-care (01) | DRG 74 ==
LOC: ERS 10:33 → T4-B 14:36
PROVIDERS: ADMIT Surgery; ATTEND Surgery
DX: G58.8 Other specified mononeuropathies (principal); I10 Essential (primary) hypertension; G43.909 Migraine, unspecified, not intractable, without status migrainosus; E78.5 Hyperlipidemia, unspecified; R13.10 Dysphagia, unspecified; Z90.49 Acquired absence of other specified parts of digestive tract; Z90.81 Acquired absence of spleen; Z90.710 Acquired absence of both cervix and uterus
CPT/HCPCS: 36415; 71045; 74177; 76856; 80048; 80053; 83605; 83690; 85025; 93976; 94760; 96365; 96375; C9113; J1650; J1885; J2270; J2405; J2543; J3480; J3490; Q9967; U0003; U0005

== ENCOUNTER 2021-08-12 11:24 | Day surgery (SDC) | payer BC ==
[2021-08-12] MEDS ORDERED: Ondansetron PF 4 MG/2 ML Vial IVP PRN (11:42)
[2021-08-12] MEDS ORDERED: Multivitamins, Adult 10 ML, Thiamine HCl 100 MG in Sodium Chloride 0.9% 1,000 ML IV SCH (11:45)
[2021-08-12] MEDS ORDERED: Sodium Chloride 0.9% 2,000 ML IV SCH (11:45)
[2021-08-12 12:07] VITALS: BP 138/60; TEMP 98.1
[2021-08-12] MEDS ORDERED: Sodium Chloride 0.9% 1,000 ML IV SCH (16:00)
== END 2021-08-12 14:29 | disposition home or self-care (01) ==
LOC: ONC/OP 11:24
PROVIDERS: ATTEND Surgery
DX: E86.0 Dehydration (principal)
CPT/HCPCS: 96361; 96365; 96366; J3411; J7050

== ENCOUNTER 2021-09-09 08:51 | Outpatient (CLI) | payer BC ==
[2021-09-09] MEDS ORDERED: Iopamidol-370 76% 500 ML 1 ML ONE (11:58)
== END 2021-09-09 08:52 | disposition home or self-care (01) ==
LOC: BICCT 08:51
PROVIDERS: ATTEND Surgery
DX: M54.9 Dorsalgia, unspecified (principal); R19.00 Intra-abdominal and pelvic swelling, mass and lump, unspecified site
CPT/HCPCS: 74177; Q9967

== ENCOUNTER 2021-12-15 08:56 | Outpatient (CLI) | payer BC | END 2021-12-15 08:57 | disposition home or self-care (01) | LOC: BICMAMMO 08:56 | PROVIDERS: ATTEND Obstetrics & Gynecology | DX: Z12.31 Encounter for screening mammogram for malignant neoplasm of breast (principal); Z80.3 Family history of malignant neoplasm of breast | CPT/HCPCS: 77063; 77067 ==

== ENCOUNTER 2023-01-01 10:24 | Outpatient (CLI) | payer BC | END 2023-01-01 10:25 | disposition home or self-care (01) | LOC: BICMAMMO 10:24 | PROVIDERS: ATTEND Obstetrics & Gynecology | DX: Z12.31 Encounter for screening mammogram for malignant neoplasm of breast (principal); N64.89 Other specified disorders of breast; Z80.3 Family history of malignant neoplasm of breast | CPT/HCPCS: 77063; 77067 ==

== ENCOUNTER 2024-01-03 09:50 | Outpatient (CLI) | payer BC | END 2024-01-03 09:51 | disposition home or self-care (01) | LOC: BICMAMMO 09:50 | PROVIDERS: ATTEND Obstetrics & Gynecology | DX: Z12.31 Encounter for screening mammogram for malignant neoplasm of breast (principal); Z80.3 Family history of malignant neoplasm of breast | CPT/HCPCS: 77063; 77067 ==